=== PATIENT | female | born 1960 | race Caucasian/White ===

== ENCOUNTER 2017-04-30 05:33 | Day surgery (SDC) | payer OTHER ==
[2017-04-30] VITALS (13 sets, daily range): BP systolic 109–141; BP diastolic 61–74; PULSE 54–78; RESP 17–28; Ht 175.3 cm; Wt 74.5 kg
[~2017-04-30] VITALS: Ht 175.3 cm; Wt 74.5 kg
[~2017-04-30 05:33] MED LIST: KLONOPIN PO; LISINOPRIL PO; NORCO PO; OXYCODONE PO
[2017-04-30] MEDS ORDERED: IOHEXOL 300MG/ML 30 ML BTL ONE (06:46)
[2017-04-30] MEDS ORDERED: AMLO2.5T78 PO (07:18)
[2017-04-30] MEDS ORDERED: ATEN50TA PO (07:21)
[2017-04-30] MEDS ORDERED: CARI350T29 PO (07:21)
[2017-04-30] MEDS ORDERED: METOCLOPRAMIDE 10 MG INJ IV PRN (07:30)
[2017-04-30] MEDS ORDERED: hydrALAzine 20 MG INJ IV PRN (07:30)
[2017-04-30] MEDS ORDERED: OXYCODONE/ACETAMINOPHEN (5/325) TAB PO PRN ×2 (07:30)
[2017-04-30] MEDS ORDERED: DIPHENHYDRAMINE 50 MG INJ IV PRN (07:30)
[2017-04-30] MEDS ORDERED: FENTAnyl 50 MCG/ML VIAL IV PRN ×3 (07:30)
[2017-04-30] MEDS ORDERED: MEPERIDINE 25 MG INJ IV PRN (07:30)
[2017-04-30] MEDS ORDERED: LABETALOL HCL 20MG INJ IV PRN (07:30)
[2017-04-30] MEDS ORDERED: HYDROmorphONE (0.2 MG/ML) 10ML SYG IV PRN ×2 (07:30)
[2017-04-30] MEDS ORDERED: EPHEDrine SULFATE 50 MG/5 ML SYG IV PRN (07:30)
[2017-04-30] MEDS ORDERED: MIDAZOLAM 1 MG/ML 2 ML INJ IV PRN (07:30)
[2017-04-30] MEDS ORDERED: ONDANSETRON 4 MG INJ IV PRN (07:30)
--- NOTE | 2017-04-30 07:32 | HPN ---
Date/Time of Note Date/Time of Note DATE: 04/30/17 TIME: 07:32 Interval H&P Admission Note Pt. seen H&P reviewed: No system changes JUAN JOSE TITUS MD Apr 30, 2017 07:32
[2017-04-30] MEDS ORDERED: PROPOFOL 20 ML ONE (08:00)
[2017-04-30] MEDS ORDERED: NEOSTIGMINE 3 MG/3 ML SYRINGE ONE (08:00)
[2017-04-30] MEDS ORDERED: GLYCOPYRROLATE 0.4 MG INJ ONE (08:00)
[2017-04-30] MEDS ORDERED: SUCCINYLCHOLINE CHLORIDE 100 MG/5 ML SYG IV ONE (08:00)
[2017-04-30] MEDS ORDERED: LIDOCAINE 2% (SDV) 5 ML INJ ONE (08:00)
[2017-04-30] MEDS ORDERED: ROCURONIUM 50 MG INJ ONE (08:00)
[2017-04-30] MEDS ORDERED: MEPERIDINE 100 MG INJ ONE (08:01)
[2017-04-30] MEDS ORDERED: CEFAZOLIN 1 GM INJ ONE (08:32)
[2017-04-30] MEDS ORDERED: FENTAnyl 50 MCG/ML VIAL ONE (08:44)
--- NOTE | 2017-04-30 08:50 | RADRPT ---
PROCEDURE: Intraoperative imaging of the abdomen and pelvis with fluoroscopy. Bilateral retrograd e urogram. CLINICAL INDICATION: Abdominal pain. Intraoperative. TECHNIQUE: 17 images of the abdomen and pelvis were obtained in the operating room with an image i ntensifier. No radiologist was in attendance. Fluoroscopy time is 55 seconds. COMPARISON: No prior study is available for comparison. FINDINGS: Images demonstrate contrast injection bilaterally in the ureters and multiple digital images of the abdomen and pelvis. There is no hydronephrosis. There is no filling defect or obstruction. IMPRESSION: 1. Satisfactory intraoperative imaging of the abdomen and pelvis. 2. Grossly normal appearance of the bilateral retrograde urogram. RPTAT: QQ .Devin Reyna MD, Date Time Electronically viewed and signed by .Devin Reyna MD, on 04/30/2017 08:50 .R/
--- NOTE | 2017-04-30 08:52 | OPR ---
Date/Time of Note Date/Time of Note DATE: 04/30/17 TIME: 08:45 Operative Report Procedure Date: Apr 30, 2017 Preoperative Diagnosis Gross hematuria Postoperative Diagnosis Gross hematuria, normal bladder and bilateral retrograde pyelograms, bleeding may have occurred from the prostate area Operation/Procedure Performed Cystoscopy and bilateral retrograde pyelograms Surgeon see signature line Surgical Scheduler None Anesthesia Type: general Anesthesiologist: KIMBERLY WELCH MD Estimated Blood Loss: none Transfusion none Specimen None Grafts/Implants none Complications none Pt Condition Post Procedure: stable Disposition: PACU Indications Gross hematuria Procedure Description Patient was brought to the operating room. An IV was started in the operating room. Initially an IV was started in the holding area but the patient pulled it out. Once IV was started the patient was given general endotracheal anesthesia. Timeout was done the patient was identified by her name, birthdate and the procedure. She was given 2 g of Ancef IV at the start of the procedure. The genital area was then prepped and draped in the usual sterile manner. 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 The prostate is not large, the bladder is trabeculated but there is no bladder tumor ulcerations or stones. The vessels at the bladder neck were prominent and she most likely bled from these. She reports having the hematuria after having orgasm and ejaculating. The ureteral orifices were normal in location and appearance. Bilateral retrograde pyelograms were done with 8 [place] cone-tip ureteral catheter. Both retrograde pyelograms were normal. The bladder was then emptied and the patient transferred to recovery room in a stable and satisfactory condition. JUAN JOSE TITUS MD Apr 30, 2017 08:52
[2017-04-30] MEDS ORDERED: HYDROCODONE/APAP (5/325) TAB PO PRN (09:00)
[2017-04-30] MEDS: HYDROmorphONE (0.2 MG/ML) 10ML SYG IV PRN ×2 (09:04→09:16)
== END 2017-04-30 10:00 | disposition home or self-care (01) ==
LOC: SDS 05:33
PROVIDERS: ATTEND Urology
DX: R31.0 Gross hematuria (principal)
CPT/HCPCS: 52005; 74420; J0690; J1170; J2175; J2710; J3010; Q9967; Z7512; Z7610

== ENCOUNTER 2017-07-18 16:31 | Emergency (ER) | END 2017-07-18 20:44 | disposition left against medical advice (07) ==